=== PATIENT | female | born 1975 | race Two or more races ===

== ENCOUNTER 2018-06-26 18:42 | Emergency (ER) | payer MEDICAID ==
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
[2018-06-26 21:57] LABS: URINE SOURCE MIDSTREAM
[2018-06-26 22:03] LABS: URINE BILIRUBIN NEGATIVE (NEGATIVE); URINE BLOOD NEGATIVE (NEGATIVE); URINE GLUCOSE (UA) NEGATIVE (NEGATIVE); URINE KETONE NEGATIVE (NEGATIVE); URINE LEUKOCYTE ESTERASE TRACE (NEGATIVE); URINE MICROSCOPIC INDICATED? YES; URINE NITRATE NEGATIVE (NEGATIVE); URINE PROTEIN NEGATIVE (NEGATIVE); URINE UROBILINOGEN 0.2 E.U./dL (0.2 - 1.0)
[2018-06-26 22:17] LABS: URINE CLARITY HAZY (CLEAR); URINE COLOR STRAW
[2018-06-26 22:18] LABS: AMPHETAMINE URINE POSITIVE (NEGATIVE); BARBITURATES URINE NEGATIVE (NEGATIVE); CANNABINOID THC POSITIVE (NEGATIVE); COCAINE METABOLITE QUAL URINE NEGATIVE (NEGATIVE); METHADONE URINE NEGATIVE (NEGATIVE); METHAMPHETAMINES QUAL URINE POSITIVE (NEGATIVE); OPIATES (MORPHINE) QUAL. URINE NEGATIVE (NEGATIVE); PHENCYCLIDINE (PCP) URINE NEGATIVE (NEGATIVE); TRICYCLICS (TCA) QUAL. URINE NEGATIVE (NEGATIVE); URINE RBC 0-2 /hpf (0-5)
[2018-06-26 22:19] LABS: BENZODIAZEPINES QUAL URINE NEGATIVE (NEGATIVE); URINE EPITHELIAL CELLS FEW /lpf (FEW)
[2018-06-26 22:20] LABS: URINE BACTERIA FEW /hpf (NONE SEEN)
--- NOTE | 2018-06-27 09:39 | Diagnostic Imaging Report ---
Right knee 3 views Indication: pain Comparison: none Findings: No evidence of an acute fracture. There is minimal narrowing of the medial knee compartment. No joint effusion. No focal soft tissue swelling. Impression: No evidence of an acute fracture. Minimal degenerative changes. In the setting of trauma, if clinical symptoms persist and there is continued concern for an occult fracture, follow up exams in 5-7 days is suggested.
--- NOTE | 2018-06-27 09:42 | Diagnostic Imaging Report ---
Lumbar spine 3 views Indication: Low back pain Comparison: none Findings: No acute compression fracture or subluxation. Mild generalized degenerative changes are noted greatest in the lower lumbar spine. The disc space heights are preserved. Cholecystectomy clips are noted. Surgical clip of the upper pelvis is also partially visualized on the right side. Impression: Mild generalized degenerative changes, greatest within the lower lumbar spine No acute compression fracture or subluxation. Postsurgical changes. In the setting of trauma, if clinical symptoms persist and there is continued concern for an occult fracture, follow up exams in 5-7 days is suggested.
== END 2018-06-26 22:30 | disposition home or self-care (01) ==
LOC: ER 18:42
DX: M54.5 Low back pain (principal); M25.561 Pain in right knee; R11.2 Nausea with vomiting, unspecified; R07.89 Other chest pain; I10 Essential (primary) hypertension; F17.200 Nicotine dependence, unspecified, uncomplicated; Z86.73 Personal history of transient ischemic attack (TIA), and cerebral infarction without residual deficits; Z90.49 Acquired absence of other specified parts of digestive tract; Z98.890 Other specified postprocedural states; Z88.1 Allergy status to other antibiotic agents
CPT/HCPCS: 72100-TC; 73562-TC-RT; 80307; 81001-TC; 81025-TC; 87086-90; Z7610